=== PATIENT | male | born 1955 | race American Indian/Alaskan Native ===

== ENCOUNTER 2018-12-25 06:39 | Emergency (ER) | payer BC, MEDICARE ==
--- NOTE | 2018-12-25 07:12 | Emergency Department Report ---
ED General Adult HPI - General Stated complaint: SEIZURE Time Seen by Provider: 12/25/18 06:57 - History of Present Illness Initial comments: The patient presents to the emergency department after having a seizure. The states the patient had a seizure 6 years ago after his renal transplant and was placed on Keppra for 2 years. Patient has not been on Keppra for the last 4 years and has been seizure free. Patient received 2 mg Ativan IM route with cessation of seizures -: Sudden Severity scale (0 -10): 0 Improves with: none Worsens with: none Associated Symptoms: denies other symptoms Treatments Prior to Arrival: none - Related Data Home Medications Medication Instructions Recorded Confirmed Last Taken Insulin Aspart [NovoLOG Flexpen] 10 units SQ TID 07/08/18 12/25/18 07/07/18 22:00 5units Metoprolol [Lopressor TAB] 50 mg PO BID 07/08/18 12/25/18 07/07/18 50mg Multivit-Min/Iron Fum/Folic AC 1 tab PO DAILY 07/08/18 12/25/18 06/10/18 [Fkfjh-Uetkznf-Sbxmrwio Tablet] Mycophenolate [Cellcept] 1,000 mg PO BID 07/08/18 12/25/18 07/07/18 250mg NIFEdipine [Nifedipine ER] 30 mg PO BID 07/08/18 12/25/18 07/07/18 30mg Tacrolimus [Prograf] 2 cap PO BID 07/08/18 12/25/18 07/07/18 2 cap predniSONE [Deltasone] 5 mg PO DAILY 07/08/18 12/25/18 07/07/18 5mg Aspirin [Aspirin BABY CHEW TAB] 81 mg PO QDAY 12/25/18 12/25/18 Unknown Previous Rx's Medication Instructions Recorded Last Taken Type levETIRAcetam [Keppra TAB] 500 mg PO BID #60 tablet 12/25/18 Unknown Rx Allergies Allergy/AdvReac Type Severity Reaction Status Date / Time No Known Allergies Allergy Unverified 07/08/18 06:22 ED Review of Systems ROS: Stated complaint: SEIZURE Other details as noted in HPI Comment: All other systems reviewed and negative Constitutional: denies: chills, fever Eyes: denies: eye pain, eye discharge, vision change ENT: denies: ear pain, throat pain Respiratory: denies: cough, shortness of breath, wheezing Cardiovascular: denies: chest pain, palpitations Endocrine: no symptoms reported Gastrointestinal: denies: abdominal pain, nausea, diarrhea Genitourinary: denies: urgency, dysuria Musculoskeletal: denies: back pain, joint swelling, arthralgia Skin: denies: rash, lesions Neurological: denies: headache, weakness, paresthesias Psychiatric: denies: anxiety, depression Hematological/Lymphatic: denies: easy bleeding, easy bruising ED Past Medical Hx - Past Medical History Hx Hypertension: Yes Hx Diabetes: Yes - Surgical History Hx Cholecystectomy: Yes - Social History Smoking Status: Former Smoker - Medications Home Medications: Home Medications Medication Instructions Recorded Confirmed Last Taken Type Insulin Aspart [NovoLOG Flexpen] 10 units SQ TID 07/08/18 12/25/18 07/07/18 22:00 History 5units Metoprolol [Lopressor TAB] 50 mg PO BID 07/08/18 12/25/18 07/07/18 History 50mg Multivit-Min/Iron Fum/Folic AC 1 tab PO DAILY 07/08/18 12/25/18 06/10/18 History [Hxziz-Tkyyabm-Esfehehk Tablet] Mycophenolate [Cellcept] 1,000 mg PO BID 07/08/18 12/25/18 07/07/18 History 250mg NIFEdipine [Nifedipine ER] 30 mg PO BID 07/08/18 12/25/18 07/07/18 History 30mg Tacrolimus [Prograf] 2 cap PO BID 07/08/18 12/25/18 07/07/18 History 2 cap predniSONE [Deltasone] 5 mg PO DAILY 07/08/18 12/25/18 07/07/18 History 5mg Aspirin [Aspirin BABY CHEW TAB] 81 mg PO QDAY 12/25/18 12/25/18 Unknown History levETIRAcetam [Keppra TAB] 500 mg PO BID #60 tablet 12/25/18 Unknown Rx ED Physical Exam - General General appearance: alert, in no apparent distress - Head Head exam: Present: atraumatic, normocephalic - Eye Eye exam: Present: normal appearance, PERRL, EOMI - ENT ENT exam: Present: mucous membranes moist - Neck Neck exam: Present: normal inspection - Respiratory Respiratory exam: Present: normal lung sounds bilaterally. Absent: respiratory distress - Cardiovascular Cardiovascular Exam: Present: regular rate, normal rhythm. Absent: systolic murmur, diastolic murmur, rubs, gallop - GI/Abdominal GI/Abdominal exam: Present: soft, normal bowel sounds. Absent: distended, tenderness - Rectal Rectal exam: Present: deferred - Extremities Exam Extremities exam: Present: normal inspection - Back Exam Back exam: Present: normal inspection - Neurological Exam Neurological exam: Present: alert, oriented X3, CN II-XII intact. Absent: motor sensory deficit - Psychiatric Psychiatric exam: Present: normal affect, normal mood - Skin Skin exam: Present: warm, dry, intact, normal color. Absent: rash ED Course Vital Signs 12/25/18 12/25/18 12/25/18 07:10 07:15 07:40 Temperature 98.4 F 98.4 F Pulse Rate 75 73 Respiratory 14 14 14 Rate Blood Pressure 182/77 Blood Pressure 182/77 [Right] O2 Sat by Pulse 95 98 98 Oximetry 12/25/18 12/25/18 12/25/18 07:44 07:45 08:40 Temperature Pulse Rate 72 71 97 H Respiratory 12 11 L 16 Rate Blood Pressure Blood Pressure 192/88 190/82 [Right] O2 Sat by Pulse 100 100 97 Oximetry ED Medical Decision Making - Lab Data Result diagrams: 12/25/18 07:10 12/25/18 07:10 Lab Results 12/25/18 12/25/18 Range/Units 07:10 07:10 WBC 4.7 (4.5-11.0) K/mm3 RBC 5.00 (3.65-5.03) M/mm3 Hgb 15.3 H (11.8-15.2) gm/dl Hct 46.1 H (35.5-45.6) % MCV 92 (84-94) fl MCH 31 (28-32) pg MCHC 33 (32-34) % RDW 13.6 (13.2-15.2) % Plt Count 146 (140-440) K/mm3 Lymph % (Auto) 28.4 (13.4-35.0) % [place] % (Auto) 11.1 H (0.0-7.3) % Eos % (Auto) 2.4 (0.0-4.3) % Baso % (Auto) 0.3 (0.0-1.8) % Lymph # 1.3 (1.2-5.4) K/mm3 [place] # 0.5 (0.0-0.8) K/mm3 Eos # 0.1 (0.0-0.4) K/mm3 Baso # 0.0 (0.0-0.1) K/mm3 Seg Neutrophils % 57.8 (40.0-70.0) % Seg Neutrophils # 2.7 (1.8-7.7) K/mm3 Sodium 139 (137-145) mmol/L Potassium 4.3 (3.6-5.0) mmol/L Chloride 105.7 (98-107) mmol/L Carbon Dioxide 23 (22-30) mmol/L Anion Gap 15 mmol/L BUN 17 (9-20) mg/dL Creatinine 0.8 (0.8-1.5) mg/dL Estimated GFR > 60 ml/min BUN/Creatinine Ratio 21 % Glucose 151 H (75-100) mg/dL Calcium 9.4 (8.4-10.2) mg/dL Total Bilirubin 1.10 (0.1-1.2) mg/dL AST 27 (5-40) units/L ALT 27 (7-56) units/L Alkaline Phosphatase 72 (35-129) units/L Total Protein 7.1 (6.3-8.2) g/dL Albumin 3.5 L (3.9-5) g/dL Albumin/Globulin Ratio 1.0 % - Radiology Data Radiology results: report reviewed - Medical Decision Making Discussed results with the patient's Side effects of Prograf reviewed which shows seizure as one of the side effects which the family is aware of and explained the reasoning for him being on Keppra previously Critical care attestation.: If time is entered above; I have spent that time in minutes in the direct care of this critically ill patient, excluding procedure time. ED Disposition Clinical Impression: Seizure Disposition: DC-01 TO HOME OR SELFCARE Is pt being admited?: No Does the pt Need Aspirin: No Condition: Stable Instructions: Recurrent Seizures Adult (ED) Additional Instructions: return if worse You may not drive until cleared by neurology Prescriptions: levETIRAcetam [Keppra TAB] 500 mg PO BID #60 tablet Referrals: ELEONORA OWENS MD [Primary Care Provider] - 3-5 Days [facility] [Provider Group] - 3-5 Days [facility] [Provider Group] - 3-5 Days VINNY BATISTA MD [Referring] - 3-5 Days Time of Disposition: 09:12
[2018-12-25 07:24] LABS: Basophils % (Auto) 0.3 % (0.0-1.8); Eosinophils # (Auto) 0.1 K/mm3 (0.0-0.4); Eosinophils % (Auto) 2.4 % (0.0-4.3); Hematocrit 46.1 % (35.5-45.6); Hemoglobin 15.3 gm/dl (11.8-15.2); Lymphocytes # (Auto) 1.3 K/mm3 (1.2-5.4); Lymphocytes % (Auto) 28.4 % (13.4-35.0); Mean Corpuscular HGB Conc 33 % (32-34); Mean Corpuscular Volume 92 fl (84-94); Monocytes # (Auto) 0.5 K/mm3 (0.0-0.8); Monocytes % (Auto) 11.1 % (0.0-7.3); Platelet Count 146 K/mm3 (140-440); Red Cell Distribution Width 13.6 % (13.2-15.2)
[2018-12-25 07:40] LABS: Alanine Aminotransferase 27 units/L (7-56); Albumin 3.5 g/dL (3.9-5); BUN/Creatinine Ratio 21; Blood Urea Nitrogen 17 mg/dL (9-20); Calcium 9.4 mg/dL (8.4-10.2); Hemolysis Index 22
--- NOTE | 2018-12-25 08:29 | Cat Scan Report ---
PROCEDURE: CT HEAD/BRAIN WO CON TECHNIQUE: A noncontrast CT of the head was performed. HISTORY: seizure COMPARISON: None FINDINGS: There are mild chronic ischemic changes in the white matter. There is no acute intracranial hemorrhage. There is no brain edema, mass effect or midline shift. Ventricular size is appropriate for brain volume. There is no abnormal extra-axial fluid collections. There is no skull fracture seen. The visualized paranasal sinuses are clear. IMPRESSION: There is no acute intracranial abnormality seen. This document is electronically signed by Radha Rowley MD., December 25 2018 09:27:38 AM ET
[2018-12-25 08:41] VITALS: BP 190/82
== END 2018-12-25 09:15 | disposition home or self-care (01) ==
LOC: ED 06:39
DX: R56.9 Unspecified convulsions (principal); I10 Essential (primary) hypertension; E11.9 Type 2 diabetes mellitus without complications; Z90.49 Acquired absence of other specified parts of digestive tract; Z87.891 Personal history of nicotine dependence; Z79.4 Long term (current) use of insulin; Z79.82 Long term (current) use of aspirin
CPT/HCPCS: 36415; 70450; 80053; 85025; 99285